=== PATIENT | male | born 1975 | race Caucasian/White ===

== ENCOUNTER 2017-06-13 01:58 | Emergency (ER) | payer OTHER ==
[~2017-06-13] VITALS: Ht 175.3 cm; Wt 120.3 kg
[~2017-06-13 01:58] MED LIST: HYDR-5688 PO
[2017-06-13 02:01] VITALS: BP 157/103; PULSE 104; TEMP 37; O2SAT 95; Ht 175.3 cm; Wt 120.3 kg
--- NOTE | 2017-06-13 02:10 | EMERGENCY ROOM VISIT NOTE ---
ED Visit Note First contact with patient: 02:03 CHIEF COMPLAINT: Tick bite HISTORY OF PRESENT ILLNESS: This 42 yo patient presents to the emergency department after they noticed a tick embedded left thigh. The patient did nt try to remove it. It had been on for less than 24 hours. The patient's tetanus shot is up-to-date. The patient denies any rashes, fevers, chills, or lightheadedness. The patient denies joint tenderness. REVIEW OF SYSTEMS: A 6 system review of systems was completed with positives and pertinent negatives listed in the HPI. ALLERGIES: pickles MEDICATIONS: none PMH: none SOCIAL HISTORY: no drug use PHYSICAL EXAM: Vital Signs: Reviewed Nurse's notes, vital signs hypertensive. GENERAL: Pleasant anxious-appearing male, in no acute distress, well-developed, well-nourished. SKIN: There is small brown tick embedded in the patient's left thigh. There is a small zone of inflammation and eccymosis around the spot where the tick is. The skin is otherwise clear. NEUROLOGICAL: Alert and oriented to person place and time, cooperative. Sensory and motor functions grossly intact. ED COURSE: I examined the patient. A tick twister was used to remove the tick. The whole head was removed. There was no bleeding. The patient tolerated the procedure well. The area was dressed with bacitracin and a bandage. The patient was requesting a prescription in case he does develop flulike illness or the bull's-eye rash. He was informed only to use this if he develops he symptoms. He was advised to return to the ER immediately for high fevers, neck stiffness, chest pains, worsening signs or symptoms or as needed. The patient was discharged home in good condition. DIAGNOSIS: Tick bite and removal DISCHARGE INSTRUCTIONS & TREATMENT: Watch the area for signs of infection. Keep bacitracin on it for 2 days. Follow up with family doctor if he develops symptoms of a target rash, fever, chills, lightheadedness, or joint pain. If you develop the bull's-eye rash as shown in the ER or flulike illness within the next 3-21 days then start the doxycycline. Current/Historical Medications Scheduled Doxycycline Hyclate (Vibramycin), 100 MG PO BID Allergies Uncoded Allergies: PICKLES (Allergy, Severe, THROAT SWELLS SHUT, 07/11/13) Vital Signs Date Time Temp Pulse Resp B/P (MAP) Pulse Ox O2 Delivery O2 Flow Rate FiO2 06/13/17 02:01 37.0 104 18 157/103 95 Room Air Departure Information Prescriptions Doxycycline Hyclate (VIBRAMYCIN) 100 Mg Cap 100 MG PO BID for 21 Days, #42 CAP Prov: Dorcas Jolly .JUAN C 06/13/17 Referrals Ward Ayala M.D. (PCP) Patient Instructions My [facility]
[2017-06-13] MEDS ORDERED: DOXY100C2 PO (02:11)
== END 2017-06-13 02:22 | disposition home or self-care (01) ==
LOC: C.EDB 01:59
DX: S70.362A Insect bite (nonvenomous), left thigh, initial encounter (principal); W57.XXXA Bitten or stung by nonvenomous insect and other nonvenomous arthropods, initial encounter